=== PATIENT | male | born 1985 | race Caucasian/White ===

== ENCOUNTER 2017-10-16 13:02 | Outpatient (CLI) | payer OTHER | END 2017-10-16 13:03 | disposition home or self-care (01) | LOC: SC 13:02 | PROVIDERS: ATTEND Specialist | DX: R53.83 Other fatigue (principal); R51 Headache; R06.83 Snoring; E66.9 Obesity, unspecified; Z68.31 Body mass index [BMI] 31.0-31.9, adult | CPT/HCPCS: 99204; 99212 ==

== ENCOUNTER 2017-12-18 22:44 | Outpatient (CLI) | payer OTHER | END 2017-12-18 22:45 | disposition home or self-care (01) | LOC: SC 22:44 | PROVIDERS: ATTEND Specialist | DX: G47.33 Obstructive sleep apnea (adult) (pediatric) (principal) | CPT/HCPCS: 95810 ==

== ENCOUNTER 2018-01-13 14:15 | Outpatient (CLI) | payer OTHER | END 2018-01-13 14:16 | disposition home or self-care (01) | LOC: SC 14:15 | PROVIDERS: ATTEND Nurse Practitioner Family | DX: G47.33 Obstructive sleep apnea (adult) (pediatric) (principal) | CPT/HCPCS: 99212; 99214 ==

== ENCOUNTER 2018-04-09 13:05 | Outpatient (CLI) | payer OTHER | END 2018-04-09 13:06 | disposition home or self-care (01) | LOC: SC 13:05 | PROVIDERS: ATTEND Nurse Practitioner Family | DX: G47.33 Obstructive sleep apnea (adult) (pediatric) (principal) | CPT/HCPCS: 99212; 99214 ==

== ENCOUNTER 2018-09-01 09:59 | Outpatient (CLI) | payer OTHER | END 2018-09-01 10:00 | disposition home or self-care (01) | LOC: SC 09:59 | PROVIDERS: ATTEND Internal Medicine Pulmonary Disease | DX: G47.33 Obstructive sleep apnea (adult) (pediatric) (principal) | CPT/HCPCS: 99212; 99213 ==

== ENCOUNTER 2019-12-28 14:40 | Outpatient (CLI) | payer OTHER ==
[2019-12-28 15:35] VITALS: BP 120/70
--- NOTE | 2019-12-28 15:35 | SLEEP CARE CONSULTATION ---
Information from patient questionnaire entered by Whitney Hall. I have reviewed and concur with the information entered by Whitney Hall. This document represents the service I personally performed and the decisions made by me, Beverly Frye, RN, MSN, [employer]. History of Present Illness Previous diagnosis: Severe, Obstructive Sleep Apnea-Hypopnea Syndrome AHI: 47.0 Reason for follow up: annual (last seen 09-01-18) Equipment type: CPAP Equipment obtained from: [facility] (having difficulty getting supplies) Mask style: Full face (Dreamwear) Mask brand: Respironics Backup mask available: No (keep current mask when replaced for spare ) Last cushion change: 3 months Prior sleep studies: Yes CPAP Compliance Data - Data Reviewed with Patient Average duration of nightly device use: 7h 42m Compliance rate %: 97.2 Current pressure setting (cmH2O): 7-11 Humidity settin Heated hose settin Average residual AHI: 2.8 Average large leak: 23m 40s Subjective Patient concerns: denies: aerophagia, mask discomfort, air blowing in eyes, mask leak noise, condensation in mask/hose, nasal congestion, dry mouth, nose, throat, epistaxis Observed to snore while using device: No Current pressure setting perceived as: comfortable On therapy, patient: reports: sleeping better, awakening more refreshed, being more awake and alert during the day, more rested overall, other (no morning headache and sore throat with CPAP use. ). denies: drowsiness while driving Initial Sumner Sleepiness Scale score: 13 Current Sumner Sleepiness Scale score: 3 Allergies and Home Medications Known drug allergies: No Home medication list reviewed: No (none ) Review of Systems Review of systems same as previous: Yes Physical Exam Blood Pressure: 120/70 Cuff size: long Heart Rate: 77 O2 Saturation: 96 Height: 5 ft 9 in Weight: 219 lb 3.2 oz Body Mass Index: 32.3 BMI Classification: Obesity Class 1 Impression and Plan 1. Obstructive Sleep Apnea-Hypopnea Syndrome, severe, with good treatment compliance and good apnea control. On CPAP therapy, the patient has better sleep quality and is more rested overall. For patient supply concerns. Patient was notified that another DME can be used. I will have my special services coordinator inform of DME options. Since he might have to transfer, a national company is advised to assist transition if needed. A DWO prescription will then be made. Patient advised to contact this office if further supply problems. If he does have to transfer, he is advised to follow up with a sleep provider in his new area on an annual basis but to establish care once transferred. To reduce mask leaks, he is advised to change his mask more frequently. Patient has lost weight. Currently patients BMI is 32.3 obesity class 1. Obesity increases the risk of apnea, CPAP pressure requirements and overall health risks especially cardiovascular and diabetes. Thus patient is advised to continue to lose weight. Weight loss can be done with reducing portion size, reducing refined foods and balancing content with vegetables, fruit and protein. In addition tracking food intake will allow awareness of how to modify diet to achieve weight loss goals. Also eating more slowly will allow more awareness of food intake and enjoyment of food while assisting patient to modify intake at each meal. A diet consultation can be helpful in achieving optimal weight loss goals. The BMI chart was reviewed. The patient would like to reduce to 175 pounds bringing their BMI down to about 27. Patient encouraged to discuss their weight loss goals with their PCP and consider a referral to a special ed assistant. The patient's CPAP pressure range should accommodate some weight loss. Symptoms to report for additional pressure adjustment discussed. Patient's apnea severity and rationale for treatment to reduce apnea, improve sleep quality and reduce cardiovascular and cerebrovascular events was reviewed. * Continue CPAP pressure at 7-11 cmH2O * Transfer to new DME. * Notify me if snoring with mask or feeling that the pressure is too much or too little * Attempt to lose weight * Call this office if any problems using CPAP * Return for follow up in 1year , or sooner if concerns arise Time Spent with Patient (minutes): 30 I spent 100% of this visit face to face with the patient with greater than 50% of this was spent time counseling the patient and coordination of care.
== END 2019-12-28 14:41 | disposition home or self-care (01) ==
LOC: SC 14:40
PROVIDERS: ATTEND Nurse Practitioner Family
DX: G47.33 Obstructive sleep apnea (adult) (pediatric) (principal); E66.9 Obesity, unspecified; Z68.32 Body mass index [BMI] 32.0-32.9, adult
CPT/HCPCS: 99212; 99214

== ENCOUNTER 2021-01-04 09:01 | Outpatient (CLI) | payer OTHER ==
--- NOTE | 2021-01-04 09:24 | SLEEP CARE CONSULTATION ---
Information from patient questionnaire entered by Sugar Saunders. I have reviewed and concur with the information entered by Sugar Saunders. This document represents the service I personally performed and the decisions made by , Milla Klein ARNP. History of Present Illness Service Date and Time: 01/04/2021 0901 Previous diagnosis: Severe, Obstructive Sleep Apnea-Hypopnea Syndrome AHI: 47.0 (in 2018) Reason for follow up: annual (last seen 12/2019) Equipment type: CPAP Equipment obtained from: [employer] (gettgin supplies as needed) Mask style: Full face Mask brand: Respironics (Dreamwear) Backup mask available: Yes (old mask) Last cushion change: about a week ago Prior sleep studies: Yes Year and Where: 2018 - [facility] HPI additional information: SHANDRA CHUN was diagnosed to have severe, AHI 47.0, obstructive sleep apnea- hypopnea syndrome and returned today for CPAP therapy annual follow-up. CPAP Compliance Data - Data Reviewed with Patient Average duration of nightly device use: 7 hr 46 min Compliance rate %: 95.6 (180 days) Current pressure setting (cmH2O): 7-11 Humidity settin Heated hose settin Average residual AHI: 3.5 Average large leak: 50 min 59 sec Subjective Patient concerns: denies: aerophagia, mask discomfort, air blowing in eyes, mask leak noise, condensation in mask/hose, nasal congestion, dry mouth, nose, throat, epistaxis, other Observed to snore while using device: No (don't know) Current pressure setting perceived as: comfortable On therapy, patient: reports: sleeping better, awakening more refreshed, being more awake and alert during the day, more rested overall. denies: drowsiness while driving Initial Oxford Sleepiness Scale score: 13 (in 2017) Current Oxford Sleepiness Scale score: 2 Allergies and Home Medications Drug allergies reviewed: Yes (NKDA) Home medication list reviewed: Yes (Escitalopram for anxiety) Review of Systems Review of systems same as previous: No (Anxiety) Physical Exam Heart Rate: 72 O2 Saturation: 96 Height: 5 ft 9 in Weight: 225 lb Body Mass Index: 33.2 BMI Classification: Obese Impression and Plan 1. Obstructive Sleep Apnea-Hypopnea Syndrome, severe, with good treatment compliance and good apnea control. On CPAP therapy, the patient has better sleep quality and is more rested overall. He will be moving this summer and was advised on how to establish with a sleep care clinic to continue monitoring of his CPAP therapy. He voiced understanding. I encouraged weight loss. Patient's current BMI is 33.2. Obesity increases the risk of apnea, CPAP pressure requirements and overall health risks especially cardiovascular and diabetes. Thus patient is advised to lose weight. Weight loss can be done with reducing portion size, reducing refined foods and balancing content with vegetables, fruit and whole grain foods. Patient's apnea severity and rationale for treatment to reduce apnea, improve sleep quality and reduce cardiovascular and cerebrovascular events was reviewed. * Continue auto CPAP pressure at 7-11 cmH2O * Notify me if snoring with mask or feeling that the pressure is too much or too little * Attempt to lose weight * Call this office if any problems using CPAP * Return for follow up in 1 year with new clinic, or sooner if concerns arise Counseling Topics: Spare mask, Weight loss health impact Visit Type: In Office Time Spent with Patient (minutes): 16 Provider Statement: I spent 100% of the Face to Face Visit with the patient with greater than 50% spent counseling the patient and coordination of care.
== END 2021-01-04 09:02 | disposition home or self-care (01) ==
LOC: SC 09:01
PROVIDERS: ATTEND Nurse Practitioner Family
DX: G47.33 Obstructive sleep apnea (adult) (pediatric) (principal); E66.9 Obesity, unspecified; Z68.33 Body mass index [BMI] 33.0-33.9, adult
CPT/HCPCS: 99212